=== PATIENT | female | born 1990 | race American Indian/Alaskan Native ===

== ENCOUNTER 2020-04-07 15:01 | Inpatient (IN) | payer OTHER ==
[~2020-04-07] VITALS: Ht 167.6 cm; Wt 89.8 kg
[2020-04-07] MEDS ORDERED: ATABEX DHA 200200 MG PO (16:41)
[2020-04-07] MEDS ORDERED: NIFEREX TABLET1 EACH PO (16:42)
== END 2020-04-08 11:00 | disposition left against medical advice (07) | DRG 833 ==
LOC: OBS/DEL 15:01 → LDR 23:23
PROVIDERS: ADMIT Obstetrics & Gynecology; ATTEND Obstetrics & Gynecology
PROC: 4A0HXFZ Measurement of Products of Conception, Cardiac Rhythm, External Approach (ICD-10-PCS; principal; 2020-04-07)
DX: O14.03 Mild to moderate pre-eclampsia, third trimester (principal); Z3A.33 33 weeks gestation of pregnancy; Z20.828 Contact with and (suspected) exposure to other viral communicable diseases